=== PATIENT | male | born 1950 | race Caucasian/White ===

== ENCOUNTER 2016-12-12 05:31 | Emergency (ER) | payer BC ==
[~2016-12-12] VITALS: Ht 188 cm; Wt 104.2 kg
[2016-12-12 06:21] LABS: HEMATOCRIT 46.8 % (38.0-50.0); MCH 30.1 PG (29.0-34.0); MCHC 33.5 G/DL (30.0-36.0); MCV 89.7 FL (86-99); MEAN PLAT.VOLUME 10.4 uM^3 (9.0-12.4); PLATELET COUNT 227 K/uL (156-360); RBC DIS.WIDTH-CV 12.4 % (11.8-14.6); RBC DIS.WIDTH-SD 40.8 % (39-53); RED BLOOD COUNT 5.22 M/uL (4.00-5.50); WHITE BLOOD COUNT 9.2 K/uL (4.1-10.2)
[2016-12-12 06:30] LABS: CHLORIDE 101 mEq/L (99-109); POTASSIUM 4.1 mEq/L (3.7-5.4); SODIUM 135 mEq/L (136-147)
[2016-12-12 06:31] LABS: GLUCOSE 107 mg/dL (70-99)
[2016-12-12 06:33] LABS: ANION GAP 9 MEQ/L (2-14)
[2016-12-12 06:35] LABS: GFR ESTIMATE (CALCULATED) > 59 mL/min/
[2016-12-12 06:36] LABS: UREA NITROGEN (BUN) 24 mg/dL (9-23)
[2016-12-12] MEDS ORDERED: METOPROLOL SUCC25 MG PO (07:05)
[2016-12-12] MEDS ORDERED: LISINOPRIL30 MG PO (07:05)
[2016-12-12] MEDS ORDERED: BRAIN MIGHT-DH1 EACH PO (07:06)
[2016-12-12] MEDS ORDERED: ATORVASTATIN CA10 MG PO (07:06)
[2016-12-12 08:52] LABS: ADD MIUA? YES; BILIRUBIN NEGATIVE; BLOOD SMALL; COLOR YELLOW ((YELLOW)); GLUCOSE (STRIP) NEGATIVE; KETONES NEGATIVE; LEUKOCYTES LARGE; NITRITE NEGATIVE; PROTEIN (STRIP) NEGATIVE; SPECIFIC GRAVITY 1.015 (1.000-1.030); UROBILINOGEN 0.2 MG/DL (0.2-1.0)
[2016-12-12 09:04] LABS: EPITHELIAL CELLS NONE SEEN /HPF; MUCUS NONE SEEN /LPF; RED BLOOD CELLS RARE /HPF (0-5)
[2016-12-12 09:05] LABS: BACTERIA NONE SEEN /HPF; UCUL ADDED? NO
[2016-12-12] MEDS ORDERED: FLOMAX0.4 MG PO (09:50)
[2016-12-12] MEDS ORDERED: CIPRO500 MG PO (09:50)
[2016-12-12] MEDS ORDERED: ZOFRAN ODT4 MG PO (09:50)
[2016-12-12] MEDS ORDERED: PERCOCET 5/31 TABLET PO (09:50)
[2016-12-12 10:13] VITALS: BP 116/72
== END 2016-12-12 10:15 | disposition home or self-care (01) ==
LOC: EME 05:31
DX: N20.1 Calculus of ureter (principal); E78.5 Hyperlipidemia, unspecified; I10 Essential (primary) hypertension; Z87.442 Personal history of urinary calculi
CPT/HCPCS: 74176; 80048; 81003; 85027; 99281; 99285; J1885; J2270; J2405; J7030

== ENCOUNTER 2016-12-15 10:14 | Emergency (ER) | payer BC ==
[~2016-12-15] VITALS: Ht 185.4 cm; Wt 103.3 kg
[~2016-12-15 10:14] MED LIST: ATORVASTATIN CA10 MG PO; BRAIN MIGHT-DH1 EACH PO; CIPRO500 MG PO; FLOMAX0.4 MG PO; LISINOPRIL30 MG PO; METOPROLOL SUCC25 MG PO; PERCOCET 5/31 TABLET PO; ZOFRAN ODT4 MG PO
[2016-12-15 11:31] LABS: HEMATOCRIT 46.8 % (38.0-50.0); MCH 30.2 PG (29.0-34.0); MCHC 32.7 G/DL (30.0-36.0); MCV 92.3 FL (86-99); MEAN PLAT.VOLUME 10.3 uM^3 (9.0-12.4); PLATELET COUNT 206 K/uL (156-360); RBC DIS.WIDTH-CV 12.5 % (11.8-14.6); RBC DIS.WIDTH-SD 42.2 % (39-53); RED BLOOD COUNT 5.07 M/uL (4.00-5.50); WHITE BLOOD COUNT 13.5 K/uL (4.1-10.2)
[2016-12-15 11:41] LABS: CHLORIDE 105 mEq/L (99-109); POTASSIUM 4.5 mEq/L (3.7-5.4); SODIUM 138 mEq/L (136-147)
[2016-12-15 11:42] LABS: GLUCOSE 102 mg/dL (70-99)
[2016-12-15 11:44] LABS: ANION GAP 9 MEQ/L (2-14)
[2016-12-15 11:46] LABS: GFR ESTIMATE (CALCULATED) > 59 mL/min/
[2016-12-15 11:47] LABS: UREA NITROGEN (BUN) 18 mg/dL (9-23)
[2016-12-15 12:17] LABS: ADD MIUA? YES; BILIRUBIN NEGATIVE; BLOOD SMALL; COLOR YELLOW ((YELLOW)); GLUCOSE (STRIP) NEGATIVE; KETONES NEGATIVE; LEUKOCYTES NEGATIVE; NITRITE NEGATIVE; PROTEIN (STRIP) NEGATIVE; SPECIFIC GRAVITY 1.016 (1.000-1.030); UROBILINOGEN 0.2 MG/DL (0.2-1.0)
[2016-12-15 12:23] LABS: BACTERIA RARE /HPF; EPITHELIAL CELLS NONE SEEN /HPF; MUCUS TRACE /LPF; UCUL ADDED? NO; WHITE BLOOD CELLS 0-5 /HPF (0-5)
[2016-12-15] MEDS ORDERED: NAPROXEN500 MG PO (14:15)
[2016-12-15 14:35] VITALS: BP 140/89
== END 2016-12-15 14:36 | disposition home or self-care (01) ==
LOC: EME 10:14
DX: N20.0 Calculus of kidney (principal); Z91.14 Patient's other noncompliance with medication regimen; R31.9 Hematuria, unspecified; I10 Essential (primary) hypertension; E78.5 Hyperlipidemia, unspecified
CPT/HCPCS: 74020; 76770; 80048; 81003; 85027; 99281; 99284; J1885; J7030